=== PATIENT | female | born 2000 | race Caucasian/White ===

== ENCOUNTER 2024-01-16 20:04 | Emergency (ER) | payer OTHER ==
[~2024-01-16] VITALS: Ht 172.7 cm; Wt 79.5 kg
[2024-01-16 20:08] VITALS: TEMP 98.9
[2024-01-16] MEDS ORDERED: NS 1,000 ML IV ONE (20:45)
[2024-01-16] MEDS ORDERED: Ondansetron 4 MG/2 ML VIAL IV ONE (20:45)
[2024-01-16 20:48] LABS: BASO % 0.1 % (0.0-2.0); EOS % 0.1 % (0.0-4.0); GRAN # 9.2 K/mm3 (1.4-6.5); GRAN % 84.8 % (42.2-75.2); HEMATOCRIT 41.8 % (37.0-47.0); HEMOGLOBIN 14.1 g/dl (12.5-16.0); LYMPH % 9.5 % (20.0-51.0); MEAN CELL VOLUME 93 fl (80.0-100.0); MEAN CORPUSCULAR HEMOGLOBIN 31 pg (27-31); MEAN CORPUSCULAR HGB CONC 34 g/dl (33.0-37.0); MEAN PLATELET VOLUME 8.7 fl (7.4-10.4); MONO # 0.5 K/mm3 (0.1-0.6); PLATELET COUNT 270 K/mm3 (130-400); RED BLOOD COUNT 4.52 M/mm3 (4.10-5.30); REDCELL DISTRIBUTION WIDTH-CV 12.5 % (11.5-14.5)
[2024-01-16 21:04] LABS: COLLECTION METHOD CLEAN CATCH
[2024-01-16 21:10] LABS: PH 6.5 (5.0-8.5); URINE APPEARANCE CLEAR (CLEAR/HAZY); URINE BLOOD 1+ (NEGATIVE); URINE COLOR YELLOW (YELLOW); URINE GLUCOSE NEGATIVE (NEGATIVE); URINE KETONE NEGATIVE (NEGATIVE); URINE NITRATE NEGATIVE (NEGATIVE); URINE PROTEIN(semi-quant) TRACE (NEGATIVE)
[2024-01-16 21:18] LABS: ALBUMIN 4.2 g/dL (3.5-5.0); BILIRUBIN,TOTAL 1.5 mg/dL (0.2-1.2); C-REACTIVE PROTEIN 7.44 mg/dL (0.00-0.50); CALCIUM 9.4 mg/dL (8.4-10.2); CREATININE, serum 0.84 mg/dL (0.57-1.11); POTASSIUM 3.5 mEq/L (3.5-4.5)
[2024-01-16 21:24] LABS: TROPONIN-I 0.015 ng/mL (0.00-0.033)
[2024-01-16 21:55] VITALS: BP 97/71; PULSE 84
== END 2024-01-16 21:55 | disposition home or self-care (01) ==
LOC: COL.ER 20:04
PROVIDERS: Nurse Practitioner
DX: K52.9 Noninfective gastroenteritis and colitis, unspecified (principal)
CPT/HCPCS: J2405; J7030